=== PATIENT | female | born 1985 | race Caucasian/White ===

== ENCOUNTER 2020-03-24 22:53 | Emergency (ER) | payer MEDICAID, OTHER ==
[~2020-03-24] VITALS: Ht 162.6 cm; Wt 95.3 kg
[~2020-03-24 22:53] MED LIST: ESCI20TA PO; NORG7TAB2 PO
--- NOTE | 2020-03-24 23:10 | NUR ---
at bedside for MSE.
[2020-03-24] MEDS ORDERED: LIDOCAINE HCL 2% 20 ML VIAL TP ONE (23:30)
[2020-03-24] MEDS ORDERED: TDAP DIPH,PERTUSS,TET VAC/PF 0.5 ML DISP.SYRIN IM ONE ×2 (23:30→23:31)
[2020-03-24] MEDS ORDERED: NEOMY/BACITRA/POLYMYXIN B OINT UD PACKET TP ONE (23:55)
--- NOTE | 2020-03-25 00:10 | NUR ---
Patient discharged to home in stable condition. Written and verbal after care instructions given. Patient verbalizes understanding of instructions. Stressed follow up or return to ER for worsening s/s. Ambulated from ER with stable gait. All belongings with patient. VSS
[2020-03-25 00:11] VITALS: BP 137/78
== END 2020-03-25 00:12 | disposition home or self-care (01) ==
LOC: ER 22:54
DX: S51.812A Laceration without foreign body of left forearm, initial encounter (principal); W27.0XXA Contact with workbench tool, initial encounter; Y93.89 Activity, other specified; Y92.019 Unspecified place in single-family (private) house as the place of occurrence of the external cause; Y99.8 Other external cause status; R03.0 Elevated blood-pressure reading, without diagnosis of hypertension; F17.210 Nicotine dependence, cigarettes, uncomplicated
CPT/HCPCS: 12002; 90471; 90715; 99283; 99406; J3490; A4663

== ENCOUNTER 2021-06-21 05:26 | Emergency (ER) | payer MEDICAID, OTHER ==
[~2021-06-21] VITALS: Ht 162.6 cm; Wt 111.1 kg
--- NOTE | 2021-06-21 05:43 | NUR ---
pt ambulate to room 3a. pt c/o sore throat and abscess to left arm pit.
--- NOTE | 2021-06-21 05:51 | NUR ---
Dr. Matias in room for DIANDRA.
[2021-06-21] MEDS ORDERED: LIDOCAINE 1%-EPI 1:100,000 20 ML VIAL ONE (06:04)
[2021-06-21] MEDS ORDERED: SULF1TAB48 PO (06:22)
[2021-06-21] MEDS ORDERED: HYDR-3980 PO (06:22)
--- NOTE | 2021-06-21 06:30 | NUR ---
Patient discharged to home in stable condition. Written and verbal after care instructions given. Patient verbalizes understanding of instructions. Stressed follow up or return to ER for worsening s/s. pt ambulatory, steady gait, denies pain.
[2021-06-21 06:32] VITALS: BP 140/55
== END 2021-06-21 06:36 | disposition home or self-care (01) ==
LOC: ER 05:31
DX: L02.412 Cutaneous abscess of left axilla (principal); J02.9 Acute pharyngitis, unspecified; F17.210 Nicotine dependence, cigarettes, uncomplicated; F32.A Depression, unspecified; Z79.899 Other long term (current) drug therapy; Z86.14 Personal history of Methicillin resistant Staphylococcus aureus infection
CPT/HCPCS: 10060; 87070; 99283; J3490; A4663

== ENCOUNTER 2021-09-21 21:31 | Emergency (ER) | payer MEDICAID ==
[~2021-09-21] VITALS: Ht 162.6 cm; Wt 99.8 kg
[~2021-09-21 21:31] MED LIST changes: +HYDR-3980 PO; +SULF1TAB48 PO
--- NOTE | 2021-09-21 22:13 | NUR ---
PT AMBULATED TO ER C/O FEELING SHORT OF BREATH X1 MONTH. A/O X4, DENIES CP/PRESSURE. NO N/V/D. PT STATES HER ALBUTERAL INHALER IS INEFFECTIVE.
--- NOTE | 2021-09-21 22:26 | NUR ---
DR. ZURITA AT BEDSIDE, MSE IN PROGRESS.
--- NOTE | 2021-09-21 22:40 | NUR ---
RT AT [facility].
[2021-09-21] MEDS ORDERED: ALBUTEROL SULFATE 2.5 MG/ 0.5 ML NEBU ONE (22:42)
[2021-09-21] MEDS ORDERED: IPRATROPIUM BROMIDE 0.5 MG/2.5 ML NEBU ONE (22:42)
[2021-09-21] MEDS ORDERED: predniSONE 20 MG TABLET ONE (22:43)
[2021-09-21] MEDS ORDERED: predniSONE 20 MG TABLET PO ONE (22:45)
[2021-09-21] MEDS ORDERED: ALBUTEROL SULFATE 2.5 MG/3 ML NEBU NEB ONE ×3 (22:45)
[2021-09-21] MEDS ORDERED: IPRATROPIUM BROMIDE 0.5 MG/2.5 ML NEBU NEB ONE ×3 (22:45)
--- NOTE | 2021-09-21 22:49 | NUR ---
XRAY AT BEDSIDE.
[2021-09-21] MEDS ORDERED: ALBU8.5H8 INH (23:42)
[2021-09-21] MEDS ORDERED: PRED50TA PO (23:42)
[2021-09-21] MEDS ORDERED: GUAI600T53 PO (23:42)
--- NOTE | 2021-09-21 23:49 | NUR ---
Patient discharged to home in stable condition. Written and verbal after care instructions given. Patient verbalizes understanding of instructions. Stressed follow up or return to ER for worsening s/s. Steady gait, no SOB or labored breathing. Denies any N/V/D.
[2021-09-21 23:50] VITALS: BP 139/76
== END 2021-09-21 23:50 | disposition home or self-care (01) ==
LOC: ER 21:32
DX: J20.9 Acute bronchitis, unspecified (principal); F17.210 Nicotine dependence, cigarettes, uncomplicated; Z82.5 Family history of asthma and other chronic lower respiratory diseases
CPT/HCPCS: 71045; 93005; 94644; 99285; 99406; J7512; A4663; J3590

== ENCOUNTER 2021-10-05 10:28 | Emergency (ER) | payer MEDICAID ==
[~2021-10-05] VITALS: Ht 162.6 cm; Wt 99.8 kg
[~2021-10-05 10:28] MED LIST changes: +ALBU8.5H8 INH; +GUAI600T53 PO; +PRED50TA PO
[2021-10-05] MEDS ORDERED: ALBUTEROL SULFATE 2.5 MG/3 ML NEBU NEB ONE (11:15)
[2021-10-05] MEDS ORDERED: IPRATROPIUM BROMIDE 0.5 MG/2.5 ML NEBU NEB ONE (11:15)
[2021-10-05] MEDS ORDERED: methylPREDNISolone SOD SUCC 125 MG/2 ML VIAL IV ONE (11:15)
[2021-10-05 11:20] LABS: MEAN CORPUSCULAR HEMOGLOBIN 31.6 uug (24.7-32.8); MEAN CORPUSCULAR VOLUME 91.9 fL (75.5-95.3); PLATELET COUNT (AUTO) 284 K/uL (179-408)
[2021-10-05] MEDS ORDERED: methylPREDNISolone SOD SUCC 125 MG/2 ML VIAL ONE (11:23)
[2021-10-05 11:27] LABS: CARBON DIOXIDE 24 mmol/L (21-32); CHLORIDE 106 mmol/L (98-107); CREATININE 0.7 mg/dL (0.6-1.3); GLUCOSE 112 mg/dL (74-106); POTASSIUM 3.6 mmol/L (3.5-5.1); UREA NITROGEN, BLOOD 9 mg/dL (7-18)
[2021-10-05 11:36] LABS: ALANINE AMINOTRANSFERASE 21 U/L (14-59); ALKALINE PHOSPHATASE 82 U/L (50-136); ASPARTATE AMINOTRANSFERASE 14 U/L (15-37); BILIRUBIN,DIRECT 0.1 mg/dL (0.0-0.2); BILIRUBIN,TOTAL 0.5 mg/dL (0.2-1.0); TOTAL PROTEIN, SERUM 6.6 g/dL (6.4-8.2)
[2021-10-05] MEDS ORDERED: ALBUTEROL SULFATE 2.5 MG/3 ML NEBU ONE ×2 (11:51)
[2021-10-05] MEDS ORDERED: IPRATROPIUM BROMIDE 0.5 MG/2.5 ML NEBU ONE (11:51)
[2021-10-05] MEDS ORDERED: CETI-90 PO (12:41)
[2021-10-05] MEDS ORDERED: PRED50TA PO (12:41)
--- NOTE | 2021-10-05 12:58 | NUR ---
DCD instructions and prescriptions provided to pt. who verbalized understanding. Patient instructed to follow up with PCP. pt. left room [id number]. vital of hr. 76, 125/74 saturation 95%. on RA.
== END 2021-10-05 13:01 | disposition home or self-care (01) ==
LOC: ER 10:28
DX: R05.9 Cough, unspecified (principal); J45.909 Unspecified asthma, uncomplicated; F17.210 Nicotine dependence, cigarettes, uncomplicated; F32.A Depression, unspecified; Z79.899 Other long term (current) drug therapy
CPT/HCPCS: 36415; 71045; 84484; 85025; 93005; A4663; J2930; J3590

== ENCOUNTER 2023-03-01 04:14 | Emergency (ER) | payer MEDICAID ==
[~2023-03-01] VITALS: Ht 162.6 cm; Wt 111.1 kg
[~2023-03-01 04:14] MED LIST changes: +CETI-90 PO
[2023-03-01 05:45] VITALS: O2SAT 96
[2023-03-01] MEDS ORDERED: IPRATROPIUM BROMIDE 0.5 MG/2.5 ML NEBU ONE (06:00)
[2023-03-01] MEDS ORDERED: ALBUTEROL SULFATE 2.5 MG/3 ML NEBU ONE (06:00)
[2023-03-01] MEDS ORDERED: methylPREDNISolone SOD SUCC 125 MG/2 ML VIAL IV ONE (06:15)
[2023-03-01] MEDS ORDERED: IPRATROPIUM BROMIDE 0.5 MG/2.5 ML NEBU NEB ONE (06:15)
[2023-03-01] MEDS ORDERED: ALBUTEROL SULFATE 2.5 MG/3 ML NEBU NEB ONE (06:15)
[2023-03-01 06:32] VITALS: O2SAT 99
[2023-03-01] MEDS: MAGNESIUM SULFATE/D5W 100 ML IV SCH ×2 (06:50→07:46)
[2023-03-01] MEDS ORDERED: methylPREDNISolone SOD SUCC 125 MG/2 ML VIAL ONE (06:52)
[2023-03-01] MEDS ORDERED: MAGNESIUM SULFATE/D5W 100 ML ONE ×2 (06:53→07:44)
[2023-03-01] MEDS ORDERED: NEBU-171 MC (09:45)
[2023-03-01] MEDS ORDERED: ALBU0.63 NEB (09:45)
[2023-03-01 09:57] VITALS: BP 129/77; O2SAT 99
== END 2023-03-01 09:59 | disposition home or self-care (01) ==
LOC: ER 04:17
DX: J45.909 Unspecified asthma, uncomplicated (principal); F17.210 Nicotine dependence, cigarettes, uncomplicated; Z79.899 Other long term (current) drug therapy; Z20.822 Contact with and (suspected) exposure to COVID-19
CPT/HCPCS: 99285; 96365; 96366; 96375; 87426; 94644; J3475 ×2; J2930; A4663; J3590

== ENCOUNTER 2023-07-22 07:46 | Emergency (ER) | payer MEDICAID ==
[~2023-07-22] VITALS: Ht 162.6 cm; Wt 122.5 kg
[~2023-07-22 07:46] MED LIST changes: +ALBU0.63 NEB; +NEBU-171 MC
[2023-07-22 07:57] VITALS: O2SAT 97
[2023-07-22] MEDS ORDERED: ESCI10TA PO (08:03)
[2023-07-22] MEDS ORDERED: ACET1TAB23 PO (08:59)
== END 2023-07-22 09:15 | disposition home or self-care (01) ==
LOC: ER 07:50
DX: S92.351A Displaced fracture of fifth metatarsal bone, right foot, initial encounter for closed fracture (principal); J45.909 Unspecified asthma, uncomplicated; F17.210 Nicotine dependence, cigarettes, uncomplicated; F32.A Depression, unspecified; Z79.899 Other long term (current) drug therapy; W01.0XXA Fall on same level from slipping, tripping and stumbling without subsequent striking against object, initial encounter; Y93.89 Activity, other specified; Y92.89 Other specified places as the place of occurrence of the external cause; Y99.8 Other external cause status
CPT/HCPCS: 73630; A4606; A4663

== ENCOUNTER 2023-08-07 03:03 | Emergency (ER) | payer MEDICAID ==
[~2023-08-07] VITALS: Ht 162.6 cm; Wt 136.1 kg
[~2023-08-07 03:03] MED LIST changes: +ACET1TAB23 PO; +ESCI10TA PO
[2023-08-07] MEDS ORDERED: KETOROLAC TROMETHAMINE 30 MG INJ ONE (03:29)
[2023-08-07] MEDS: KETOROLAC TROMETHAMINE 30 MG INJ IM ONE (03:33)
[2023-08-07 07:40] VITALS: BP 151/97; O2SAT 100
== END 2023-08-07 07:40 | disposition home or self-care (01) ==
LOC: ER 03:08
DX: S92.351A Displaced fracture of fifth metatarsal bone, right foot, initial encounter for closed fracture (principal); J45.909 Unspecified asthma, uncomplicated; F32.9 Major depressive disorder, single episode, unspecified; F17.200 Nicotine dependence, unspecified, uncomplicated; Z79.899 Other long term (current) drug therapy; X58.XXXA Exposure to other specified factors, initial encounter; Y93.89 Activity, other specified; Y92.89 Other specified places as the place of occurrence of the external cause; Y99.8 Other external cause status
CPT/HCPCS: 99283; 73630; 96372; J1885; A4606; A4663